=== PATIENT | male | born 1980 | race Caucasian/White ===

== ENCOUNTER → 2017-08-20 | Outpatient (CLI) | payer BC ==
[~2017-08-20] MED LIST: LISI20TA29 PO; SIMV-49 PO
[2017-08-20 08:11] LABS: PLATELET COUNT, AUTOMATED 169 K/uL (150-450)
== END ==
LOC: LAB 07:50
PROVIDERS: ATTEND Internal Medicine
DX: I10 Essential (primary) hypertension (principal); M10.9 Gout, unspecified; E78.5 Hyperlipidemia, unspecified
CPT/HCPCS: 36415; 81001; 82040; 82247; 82310; 82374; 82435; 82465; 82565; 82947; 83718; 84075; 84132; 84155; 84295; 84443; 84450; 84460; 84478; 84520; 84550; 85025

== ENCOUNTER → 2017-08-26 | Outpatient (CLI) | payer BC ==
--- NOTE | 2017-08-26 13:38 | RADIOLOGY IMAGING REPORT ---
FACILITY: [facility] [place] PATIENT NAME: Shane Campos : 1980 MR: [id number] V: [id number] EXAM DATE: ORDERING PHYSICIAN: SERG KAM TECHNOLOGIST: Location: [facility] Patient: Shane Campos : 1980 Visit/Account:[id number] Date of Sevice: 08/26/2017 KIDNEYS EXAMINATION: Renal ultrasound. History: Abnormal kidney function, high levels a potassium COMPARISON STUDIES: FINDINGS: Kidneys: Right kidney- 13 x 6.3 x 5.9 cm Left kidney- 13.9 x 4.7 x 6 cm Uniform and symmetric blood flow in each kidney by Doppler ultrasound. Hydronephrosis: none Resistive index on the right 0.6 on the left 0.67.. There is a slightly lobular contour to the left kidney. Bladder: Prevoid volume 360 mL. Post for residual zero. Bilateral ureteral jets were identified Abdominal aorta and IVC: Aorta and IVC are patent by Doppler ultrasound. IMPRESSION: Slightly lobular contour to the left kidney otherwise unremarkable renal ultrasound Report Dictated By: Keke Mahmood MD at 08/26/2017 1:33 PM Report E-Signed By: Keke Mahmood MD at 08/26/2017 1:34 PM WSN:ARMANDO
== END ==
LOC: US 06:58
PROVIDERS: ATTEND Internal Medicine
DX: Q63.1 Lobulated, fused and horseshoe kidney (principal)
CPT/HCPCS: 76705

== ENCOUNTER 2017-12-06 15:56 | Outpatient (RCR) | payer BC ==
[~2017-12-06] VITALS: Ht 193 cm; Wt 199.1 kg
[~2017-12-06 15:56] MED LIST changes: +LISI-353 PO
--- NOTE | 2017-12-08 16:59 | Medical Nutrition Therapy ---
Nutrition Anthropometrics Height (Inches): 76 Weight (Pounds): 439 Grant Nutrition Score: Grant Nutrition Risk Score: Dietary Referral Nutrition Risk Factors: Nutrition Risk Comment: Nutrition/Food History Special Diet Prior Admit, Increased Appetite Good Skipped Meals: No Exercise: No (Pt job is physical, works for the [employer]) Breakfast: 3 cups honeynut cheerios w almond milk or scrambled eggs Lunch: 4 oz ham or turkey sandwich whole grain bread 3 cups red grapes and veg Dinner: chicken thighs, red potato, squash, sweet peppers and 2 Tbsp coconut oil Snacks: cutie oranges, yogurt with triscuts, cookies, cupcakes, PB&J Nutritional Education Nutrition Education Topic: Weight Loss Diet Learning Readiness: Eager Teaching Methods: Discussion, Handout, Demonstration Response to Teaching: Verbalize understanding Teaching Recipient: Patient Nutrition Counseling: Pt stated that his goal is weight loss to avoid having gastric bypass surgery. When asked what he needed pt stated that he needs accountability. Pt stated that he has had previous success with a prescribed meal plan and bi-weekly weigh ins. Pt lives alone and self prepares meals. Pt reported that he believes he would have more success if he were given a prescribed meal plan to stick to. Pt goal weight [address] and patient determined a meal plan that would work for pt to provide an estimated 2500 kcal per day for pt. Pt amiable to meal plan. RD also provided pt two handouts from the [employer] on tips for weight loss. Nutrition Monitoring & Eval RD Patient Assessment Time: [address] Assessment Type: RD Education Nutritional Comment: Provided 60 minute MNT for wt loss for pt with BMI of 53.4 Copies To Copies to: SERG KAM MD, BETH Dec 06, 2017 17:23
--- NOTE | 2017-12-15 08:53 | Medical Nutrition Therapy ---
Nutrition Monitoring & Eval RD Assessment Type: RD Education Nutritional Comment: Called pt to make f/u appt. Pt has not checked with insurance and not ready to make an appt. Pt will call when ready. Copies To Copies to: SERG KAM MD, BETH December 15, 2017 08:52
[2018-01-04] MEDS ORDERED: COLC0.6T2 PO (16:19)
[2018-01-04] MEDS ORDERED: ALLO100T70 PO (16:19)
== END 2018-01-10 ==
LOC: DIET 15:56
PROVIDERS: ATTEND Internal Medicine
DX: Z71.3 Dietary counseling and surveillance (principal); E66.9 Obesity, unspecified
CPT/HCPCS: 97802

== ENCOUNTER → 2017-12-24 | Outpatient (CLI) | payer BC | LOC: LAB 07:54 | PROVIDERS: ATTEND Internal Medicine | DX: I10 Essential (primary) hypertension (principal); M10.9 Gout, unspecified; E78.5 Hyperlipidemia, unspecified; E66.9 Obesity, unspecified | CPT/HCPCS: 36415; 82040; 82247; 82310; 82374; 82435; 82465; 82565; 82947; 83718; 84075; 84132; 84155; 84295; 84450; 84460; 84478; 84520; 84550 ==

== ENCOUNTER → 2018-07-20 | Outpatient (CLI) | payer BC ==
[~2018-07-20] MED LIST changes: +ALL300 PO; +ALLO100T70 PO; +COLC0.6T2 PO
[2018-07-20 16:30] LABS: PLATELET COUNT, AUTOMATED 179 K/uL (150-450)
== END ==
LOC: LAB 15:57
PROVIDERS: ATTEND Internal Medicine
DX: E78.5 Hyperlipidemia, unspecified (principal); M10.9 Gout, unspecified; Z98.84 Bariatric surgery status; I10 Essential (primary) hypertension
CPT/HCPCS: 36415; 81001; 82040; 82247; 82306; 82310; 82374; 82435; 82465; 82565; 82607; 82728; 82746; 82947; 83540; 83550; 83718; 84075; 84132; 84155; 84295; 84443; 84450; 84460; 84478; 84520; 84550; 85025